=== PATIENT | female | born 1980 | race Caucasian/White ===

== ENCOUNTER → 2024-10-30 13:23 | Outpatient (REF) | payer OTHER, SELFPAY ==
[2024-10-30 13:40] VITALS: BP 118/78; BP_SYST 71
[2024-10-30 14:22] VITALS: BP 118/78
== END ==
LOC: RADI 13:23
PROVIDERS: ATTENDING PHYSICIAN Nurse Practitioner Family; FAMILY PHYSICIAN Family Medicine
DX: E04.1 Nontoxic single thyroid nodule (principal)
CPT/HCPCS: 88173; 10005

== ENCOUNTER 2024-12-10 06:23 | Day surgery (SDC) | payer OTHER, SELFPAY ==
[2024-12-02 11:28] LABS: Hematocrit 39.8 % (37.0-47.0); Hemoglobin 13.1 g/dL (12.0-16.0); INR 1.03; Mean Corp Hgb Conc. 32.9 g/dL (33.0-37.0); Mean Corpuscular Volume 92.1 fL (81.0-99.0); PT 13.8 Sec (11.4-14.6); Platelet Count 317 10^3/uL (130-400); Red Cell Dist. Width 11.9 % (11.5-14.5)
[2024-12-02 11:29] LABS: APTT 28.0 Sec (23.4-35.0)
[2024-12-02 13:48] LABS: ALT (SGPT) 14 U/L (0-35); AST (SGOT) 21 U/L (14-36); Albumin 4.5 g/dl (3.5-5.0); Alkaline Phosphatase 69 U/L (38-126); Blood Urea Nitrogen 16 mg/dl (7-17); Calcium 9.8 mg/dl (8.4-10.2); Carbon Dioxide 30 mmol/L (22-30); Chloride 106 mmol/L (98-107); Glucose 85 mg/dl (70-99); Potassium 4.3 mmol/L (3.5-5.1); Sodium 141 mmol/L (135-145); Total Protein 7.1 g/dl (6.3-8.2); eGFR > 60.00
[2024-12-02 13:59] VITALS: BMI 20.5
[2024-12-10] VITALS (8 sets, daily range): BP systolic 117–136; BP diastolic 72–91; BMI 20.5
[2024-12-10] MEDS: TYLENOL 1000 MG PO (09:01)
[2024-12-10] MEDS: NEURONTIN 300 MG PO (09:01)
[2024-12-10] MEDS: HEPARIN 5000 UNITS SC (09:01)
[2024-12-10] MEDS: NORMOSOL-R/PLASMALYTE-A 1000 IV (09:02)
[2024-12-10] MEDS: SUBLIMAZE 25 MCG IV (11:30)
--- NOTE | 2024-12-10 11:43 | OR.RPT ---
Operative Report
Operative Report
DATE OF OPERATION: December 10, 2024
PREOPERATIVE DIAGNOSIS: Thyroid Nodule Single - E041
POSTOPERATIVE DIAGNOSIS: Same
SURGEON: Forrest Holden M.D.
OPERATION: Left Thyroidectomy, Isthmus Resection, and Left Limited Neck Dissection � 23315
Autotransplant of the left inferior parathyroid gland - [id number]
ANESTHESIA: GET
ESTIMATED BLOOD LOSS: 2 cc
DRAINS: None
SPECIMEN: Left thyroid lobe, isthmus, and left level paratracheal tissue
FINDINGS: A large left mass
COMPLICATIONS: None
PROCEDURE:
The patient was taken to the operating room and placed in the usual supine position. After adequate general endotracheal anesthesia was established, the patient�s neck was extended, prepped, and draped in the typical sterile fashion. A 4 cm
transcervical incision was made two fingerbreadths above the sternal notch. The skin incision was made with the #15 blade, which was taken through the skin into the subcutaneous tissue. The underlying platysma muscle was divided, and subplatysmal
flaps were created superiorly to the thyroid cartilage and inferiorly to the sternal notch. Strap muscles were identified and at the midline.
Attention was turned to the patient�s left thyroid lobe. The left thyroid lobe was mobilized medially. During this process, the left middle thyroid vein and inferior thyroid artery were dissected and ligated with Ligasure. Next, the left superior
pole was taken down by dissecting and transecting the superior pole vessels with a Ligasure. The left thyroid lobe was mobilized medially. During this process, the left recurrent laryngeal nerve was identified and preserved throughout its entire
course. The left superior and inferior parathyroid glands were identified and preserved. The left thyroid lobe with isthmus was resected off the trachea and sent to the pathology department.
At this time, the left neck dissection was performed. The tissue between the left carotid artery to the trachea in the anterior mediastinum was carefully dissected. The previously identified recurrent laryngeal nerve and parathyroid glands were
preserved. The tissue was removed and sent to the pathology department. At this time left inferior parathyroid gland was noted to be ischemic. Therefore, it was minced and autotransplanted in the left SCM muscle.
After obtaining adequate hemostasis, the strap muscle was approximated with #3-0 Vicryl in a running fashion, and the platysma muscles were reapproximated with #3-0 Vicryl in an interrupted fashion, and the skin was approximated with #4-0 Monocryl
in a running subcuticular fashion. Steri-strips and sterile dressings were placed. The patient tolerated the procedure well. The final instrument, needle, and sponge counts were correct.
== END 2024-12-10 12:56 | disposition home or self-care (01) ==
LOC: SDS 06:23
PROVIDERS: ATTENDING PHYSICIAN Surgery; FAMILY PHYSICIAN Family Medicine
DX: C73 Malignant neoplasm of thyroid gland (principal); E04.1 Nontoxic single thyroid nodule
CPT/HCPCS: 60252; 60512; 36415; 80053; 85027; 85610; 85730; 88307; 88341; 88342; 93005; C1776